=== PATIENT | male | born 1965 | race Caucasian/White ===

== ENCOUNTER 2019-02-10 11:15 | Emergency (ER) | payer SELFPAY ==
--- NOTE | 2019-02-10 11:19 | NUR.NOTE ---
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 pt states that he had numbness in his legs when it happened
[2019-02-10 11:21] VITALS: BP 143/99; PULSE 81; RESP 15; TEMP 37.4; O2SAT 97
--- NOTE | 2019-02-10 11:39 | ED.GENADUL_ITS ---
Discharge Plan Disposition Patient Disposition: HOME Condition: Stable Discharge Details Chief Complaint: Nk/Back Pain Clinical Impression: Lumbar strain Primary Care Provider: None,None ED Provider: Joe Hebert Home Meds and New Rx's Prescriptions: New cyclobenzaprine 10 mg tablet 10 mg PO TID PRN (Reason: pain) Qty: 30 RF: 0 lidocaine 5 % adhesive patch,medicated 1 patch TP DAILY Qty: 30 RF: 0 Discharge Instructions Instructions: Low Back Strain (ED) Additional Instructions: Follow up with your primary care provider within 1-2 weeks especially if pain is not improving. call Physical therapy offices for an appointment if you have new symptoms such as fevers, or difficulty urinating return to the emergency department you can take 1000mg tylenol and 600mg ibuprofen every [address] for [address] not drive or drink alcohol if you take the cyclobenzaprine (flexeril) Medical Decision Making 54 yo male with no chronic medical problems comes in with chief complaint of right lower back pain. He was lifting up a toilet at work and turning while holding it when he had onset of right lower back pain. denies falls or trauma. He had transient brief numbness of his legs and none now. He has pain on the right lower lumbar back that is reproducible with no midline pain, no weakness, 5/5 strength in the lower extremities and no saddle anesthesia, no findings to sugget cauda equina. Denies ivdu and no fevers and this started while lifting so doubt sea. I suspect lumbar strain, possible muscle spasm vs disc herniation. Do not feel xrays indicated given lack of trauma. Will have him start nsaids, muscle relaxers prn and PT and f/u with pcp and return precautions given Differential Diagnosis lumbar strain, muscle spasm, disc herniation HPI General Mode of arrival: ambulatory . Date/Time Provider Initiated Documentation: 02/10/19 11:16 . Limitations to Documentation: no limitations . Information obtained by: patient . History of Present Illness 54 year old M presents to the emergency department with the chief complaint of right lower ba ck pain, described as moderate, Quality is described as aching, Patient started experiencing this hour(s) (2) and it has been constant. Rest improves symptom(s), Movement worsens symptoms . Patient notes no other symptoms.. Related Data Home Medications Medication Instructions Recorded Confirmed cyclobenzaprine 10 mg PO TID PRN #30 tab 02/10/19 lidocaine 1 patch TP DAILY #30 each 02/10/19 Previous Rx's Medication Instructions Recorded cyclobenzaprine 10 mg PO TID PRN #30 tab 02/10/19 lidocaine 1 patch TP DAILY #30 each 02/10/19 Allergies Allergy/AdvReac Type Severity Reaction Status Date / Time No Known Allergies Allergy Unverified 02/10/19 11:22 General Stated Complaint: Orthopedic JAELYN: 4 Review of Systems Review of Systems All systems reviewed & are unremarkable except as noted in HPI and below Constitutional Denies chills, Denies fever(s) and Denies weakness Cardiovascular Denies chest pain and Denies dyspnea Respiratory Denies cough and Denies dyspnea Gastrointestinal Denies abdominal pain, Denies nausea and Denies vomiting Musculoskeletal Denies joint swelling Neurologic Denies weakness PFSH Social History Smoking/Tobacco Use Status: Current every day Tobacco Type: smokeless tobacco Alcohol Intake: current Alcohol Intake frequency: a few times a week Drug use: Never Substance use type: marijuana Do you feel safe at home: Yes Do you feel safe in your relationship?: Yes Exam Const General: no acute distress Orientation: alert HENMT Head: normal to inspection Ears: external ears normal General nose exam: external nose normal Mouth: moist mucous membranes Eyes General: appearance normal, both eyes and all related structures Neck Neck: normal visual inspection Resp Effort & Inspection: normal respiratory effort and able to speak in complete sentences Cardio Rate: regular rate Back/Spine/Pelvis Back: no CVA tenderness Skin General skin exam: no rashes or lesions noted Neuro General: alert and oriented x3 Extrem General: normal to inspection Psych Mental Status: mental status grossly normal Course Vital Signs Temperature 37.4 C 02/10/19 11:21 Pulse 81 02/10/19 11:21 Respiratory Rate 15 02/10/19 11:21 Blood Pressure 143/99 H 02/10/19 11:21 Pulse Oximetry 97 02/10/19 11:21 Temperature 37.4 C 02/10/19 11:21 Temperature Source Skin 02/10/19 11:21 Pulse 81 02/10/19 11:21 Respiratory Rate 15 02/10/19 11:21 Respiratory Effort 02/10/19 11:23 Blood Pressure 143/99 H 02/10/19 11:21 Blood Pressure Position Sitting 02/10/19 11:21 Pulse Oximetry 97 02/10/19 11:21 Oxygen Delivery Method Room Air 02/10/19 11:21 Oxygen Flow Rate 0 02/10/19 11:21 Pain Level 8 02/10/19 11:21
[2019-02-10] MEDS: Ketorolac 30 MG/ML VIAL IM (11:46)
== END 2019-02-10 12:03 | disposition home or self-care (01) ==
PROVIDERS: Emergency Provider Emergency Medicine
DX: S39.012A Strain of muscle, fascia and tendon of lower back, initial encounter (principal); R20.0 Anesthesia of skin; X50.0XXA Overexertion from strenuous movement or load, initial encounter; Y99.0 Civilian activity done for income or pay
CPT/HCPCS: 96372; 99284; 99283; J1885